=== PATIENT | female | born 2000 | race Two or more races ===

== ENCOUNTER 2023-12-04 03:06 | Emergency (ER) | payer MEDICAID ==
[~2023-12-04] VITALS: Ht 170.2 cm; Wt 75.0 kg
[2023-12-04] MEDS: METOCLOPRAMIDE HCL 10 MG TAB PO ONE (04:21)
[2023-12-04] MEDS: ACETAMINOPHEN 325 MG TAB PO ONE (04:21)
[2023-12-04 04:24] VITALS: BP 122/66; PULSE 67; RESP 16; O2SAT 100
== END 2023-12-04 06:11 | disposition home or self-care (01) ==
LOC: ER 03:06
DX: S01.511A Laceration without foreign body of lip, initial encounter (principal); Y08.89XA Assault by other specified means, initial encounter; Y93.89 Activity, other specified; Y92.89 Other specified places as the place of occurrence of the external cause; Y99.8 Other external cause status
CPT/HCPCS: 70450; 99284; J8597